=== PATIENT | female | born 1970 | race Caucasian/White ===

== ENCOUNTER 2021-08-28 13:32 | Emergency (ER) | payer BC ==
[~2021-08-28 13:32] MED LIST: COLACE100 MG PO; MAGNESIUM500 MG PO; NORCO 5-325 TA1 EACH PO; THERAGRAN M TAB1 EA PO; VITAMIN D250000 UNIT PO
== END 2021-08-28 17:12 | disposition home or self-care (01) ==
LOC: ER1 13:32
DX: M79.661 Pain in right lower leg (principal)
CPT/HCPCS: 93971; 99283